=== PATIENT | female | born 1945 | race Caucasian/White ===

== ENCOUNTER 2017-12-05 11:15 | Emergency (ER) | payer OTHER, MEDICARE ==
[~2017-12-05] VITALS: Ht 160 cm; Wt 97.1 kg
[2017-12-05 11:15] VITALS: BP_SYST 145
--- NOTE | 2017-12-05 11:15 | NUR ---
BROUGHT BACK TO BED #1 AND TRIAGED. REPORT GIVEN TO RADHA
--- NOTE | 2017-12-05 11:19 | NUR ---
Patient to ER bed 1 to gown for evaluation. Trigaed at bedside. Side rails up. Report given to Chika DE JESUS.
--- NOTE | 2017-12-05 11:39 | NUR ---
ER Dr. Sanchez at bedside examining patient.
--- NOTE | 2017-12-05 12:03 | NUR ---
DR BUCIO AT BEDSIDE
--- NOTE | 2017-12-05 12:26 | NUR ---
Patient given written and verbal discharge instructions and verbalizes understanding. ER MD discussed with patient the results and treatment provided. Patient in stable condition. ID arm band removed. No Rx given. Patient educated on pain management and to follow up with PMD. Pain Scale 0/10. Opportunity for questions provided and answered. Addendum: 12/05/17 at 1232 by ROMÁN strong pedal pulse cap refill 2 secs
[2017-12-05 12:29] VITALS: BP_SYST 132
== END 2017-12-05 12:29 | disposition home or self-care (01) ==
LOC: SED 11:15
DX: G89.29 Other chronic pain (principal); M25.571 Pain in right ankle and joints of right foot; I10 Essential (primary) hypertension; I48.91 Unspecified atrial fibrillation; Z91.041 Radiographic dye allergy status; Z88.2 Allergy status to sulfonamides; Z91.040 Latex allergy status; Z91.013 Allergy to seafood
CPT/HCPCS: 99281